=== PATIENT | female | born 1940 | race Caucasian/White ===

== ENCOUNTER 2017-05-25 23:23 | Emergency (ER) | payer MEDICARE, MEDICAID ==
[~2017-05-25] VITALS: Ht 157.5 cm; Wt 57.6 kg
[~2017-05-25 23:23] MED LIST: LISI10TA5 PO
[2017-05-25 23:38] VITALS: BP_SYST 132
--- NOTE | 2017-05-26 01:09 | NUR ---
Patient to ER bed 7 to gown for evaluation. Side rails up. Will assume care.
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
--- NOTE | 2017-05-26 01:29 | NUR ---
ER Dr. Hatch at bedside examining patient.
[2017-05-26 03:24] VITALS: BP_SYST 132
--- NOTE | 2017-05-26 03:24 | NUR ---
Patient given written and verbal discharge instructions and verbalizes understanding. ER MD discussed with patient the results and treatment provided. Patient in stable condition. ID arm band removed. No Rx given. Patient educated on pain management and to follow up with PMD in 2-3 days. Motrin and Tylenol for pain. Pain Scale 0/10 Opportunity for questions provided and answered.
== END 2017-05-26 03:24 | disposition home or self-care (01) ==
LOC: SED 23:23
DX: S40.011A Contusion of right shoulder, initial encounter (principal); I10 Essential (primary) hypertension; R07.89 Other chest pain; V89.2XXA Person injured in unspecified motor-vehicle accident, traffic, initial encounter; Y93.89 Activity, other specified; Y92.410 Unspecified street and highway as the place of occurrence of the external cause; Y99.8 Other external cause status
CPT/HCPCS: 73030; 99284

== ENCOUNTER 2020-06-08 14:19 | Emergency (ER) | payer MEDICARE, MEDICAID ==
[~2020-06-08] VITALS: Ht 152.4 cm; Wt 59.0 kg
[~2020-06-08 14:19] MED LIST changes: +LISI10TA29 PO; -LISI10TA5 PO
[2020-06-08 14:33] VITALS: BP_SYST 161
[2020-06-08] MEDS ORDERED: ACETAMINOPHEN 500 MG TABLET PO ONE (17:00)
[2020-06-08 18:29] VITALS: BP_SYST 165
== END 2020-06-08 18:29 | disposition home or self-care (01) ==
LOC: SED 14:19
DX: S00.93XA Contusion of unspecified part of head, initial encounter (principal); I10 Essential (primary) hypertension; W01.198A Fall on same level from slipping, tripping and stumbling with subsequent striking against other object, initial encounter; Y93.89 Activity, other specified; Y92.89 Other specified places as the place of occurrence of the external cause; Y99.8 Other external cause status
CPT/HCPCS: 70450-TC; 76376; 99284